=== PATIENT | female | born 2000 | race African-American/Black ===

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

== ENCOUNTER 2020-03-11 20:15 | Emergency (ER) | payer OTHER | END 2020-03-11 21:39 | disposition other institution (70) | LOC: ED 20:15 | DX: Z02.89 Encounter for other administrative examinations (principal) ==

== ENCOUNTER 2020-03-11 20:15 | Emergency (ER) | payer OTHER ==
[~2020-03-11] VITALS: Ht 162.6 cm; Wt 59.9 kg
[2020-03-11 20:18] VITALS: Ht 162.6 cm; Wt 59.9 kg
[2020-03-11 21:39] VITALS: BP 123/91
== END 2020-03-11 21:39 | disposition other institution (70) ==
LOC: ED 20:15
DX: S63.501A Unspecified sprain of right wrist, initial encounter (principal); W22.8XXA Striking against or struck by other objects, initial encounter; Y93.89 Activity, other specified; Y92.89 Other specified places as the place of occurrence of the external cause; Y99.8 Other external cause status

== ENCOUNTER 2020-05-04 16:00 | Emergency (ER) | payer OTHER ==
[~2020-05-04] VITALS: Ht 165.1 cm; Wt 63.5 kg
[2020-05-04 16:12] VITALS: Ht 165.1 cm; Wt 63.5 kg
[2020-05-04 16:56] LABS: CALCIUM 8.8 mg/dL (8.5-10.1); CARBON DIOXIDE 30.5 mmol/L (21-32); CHLORIDE SERUM 105 mmol/L (98-107); CREATININE SERUM 0.7 mg/dL (0.6-1.0); GFR1 > 60 mL/min; GLUCOSE SERUM 94 mg/dL (74-106); POTASSIUM SERUM 4.2 mmol/L (3.5-5.1); SODIUM SERUM 142 mmol/L (136-145)
[2020-05-04 17:07] LABS: BASOPHIL % 0.4 % (0-2); PLATELET COUNT 272 x10^3mcL (130-400)
[2020-05-04 17:08] LABS: ALBUMIN 3.6 g/dL (3.4-5.0); ALKALINE PHOSPHATASE 46 U/L (46-116); ALT/SGPT 16 U/L (14-59); AST/SGOT 16 U/L (15-37); BILIRUBIN TOTAL 0.2 mg/dL (0.20-1.00); TOTAL PROTEIN, SERUM 6.9 g/dL (6.4-8.2)
[2020-05-04 17:12] LABS: RED CELL DISTRIBUTION WIDTH 15.8 % (11.5-14.5)
[2020-05-04 17:51] VITALS: BP 119/82
== END 2020-05-04 18:06 | disposition left against medical advice (07) ==
LOC: ED 16:00
PROVIDERS: Emergency Medicine
DX: R40.4 Transient alteration of awareness (principal)
CPT/HCPCS: G0480; Q0092